=== PATIENT | female | born 2000 | race Caucasian/White ===

== ENCOUNTER 2019-11-29 22:18 | Inpatient (IN) | payer BC ==
[~2019-11-29] VITALS: Ht 167.6 cm; Wt 82.1 kg
[~2019-11-29 22:18] MED LIST: IV NORMAL SALINE 1000ML BAG 1,000 ML IV SCH
[2019-11-29] MEDS ORDERED: 0.9 % SODIUM CHLORIDE 10 ML DISP.SYRIN. IV PRN (22:30)
[2019-11-29] MEDS ORDERED: ACETAMINOPHEN 325 MG TABLET. PO PRN (22:30)
[2019-11-29] MEDS ORDERED: TERBUTALINE 1 MG/ML VIAL. SQ PRN (22:30)
[2019-11-29] MEDS ORDERED: OXYTOCIN 30 UNIT/500 ML PREMIX 500 ML IV PRN (22:30)
[2019-11-29] MEDS ORDERED: LIDOCAINE 1% PF 30 ML VIAL. INJ PRN (22:30)
[2019-11-29] MEDS ORDERED: BUTORPHANOL 2 MG/ML VIAL. IVP PRN (22:30)
[2019-11-29 22:51] LABS: BILIRUBIN,URINE NEGATIVE (NEG); CLARITY,URINE TURBID; COLOR,URINE YELLOW; NITRITE,URINE NEGATIVE (NEG); PH,URINE 7.5 (<5.0-8.0); PROTEIN,URINE 100 mg/dL (NEG-TRACE); UROBILINOGEN,URINE 0.2 mg/dL (0.2 mg/dL)
[2019-11-29 23:13] LABS: BACTERIA,URINE FEW /HPF (0-FEW); SQUAMOUS EPITHELIAL CELL,UR MOD /LPF
[2019-11-29] MEDS: IV RINGERS,LACTATED 1000ML 1,000 ML IV SCH (23:19)
[2019-11-29 23:30] LABS: BASO % 0 % (0-3); EOS % 0 % (0-3); HEMATOCRIT 31.9 % (36.0-47.0); HEMOGLOBIN 11.1 g/dL (12.0-15.5); LYMPH # 2.4 x10^3/uL (1.0-4.8); LYMPH % 14 % (24-48); MEAN CORPUSCULAR HEMOGLOBIN 32 pg (25-35); MEAN CORPUSCULAR HGB CONC 35 g/dL (31-37); MEAN CORPUSCULAR VOLUME 92 fL (79-100); MONO # 0.9 x10^3/uL (0.0-1.1); MONO % 5 % (0-9); NEUT # 14.1 x10^3/uL (1.8-7.7); NEUT % 80 % (31-73); PLATELET COUNT 281 x10^3/uL (140-400); RED BLOOD COUNT 3.47 x10^6/uL (3.50-5.40); WHITE BLOOD COUNT 17.6 x10^3/uL (4.0-11.0)
[2019-11-29 23:36] VITALS: BP 133/78
[2019-11-30] MEDS ORDERED: NALOXONE 0.4 MG/ML VIAL. IV PRN (00:15)
[2019-11-30] MEDS ORDERED: L&D EPIDURAL SYRINGE 50 ML EPID PRN (00:15)
[2019-11-30] MEDS ORDERED: ROPIVacaine 0.2% PF 10 ML VIAL. EPID PRN (00:15)
[2019-11-30] MEDS ORDERED: fentaNYL PF VIAL 100 MCG/2 ML VIAL EPID PRN (00:15)
[2019-11-30] MEDS ORDERED: BUPIVACAINE MPF 0.25% 30 ML VIAL. EPID PRN (00:15)
[2019-11-30] MEDS ORDERED: IV RINGERS,LACTATED 1000ML 1,000 ML IV SCH (00:30)
[2019-11-30] MEDS: IV RINGERS,LACTATED 1000ML 1,000 ML IV SCH (00:37)
[2019-11-30] MEDS ORDERED: ROPIVacaine 0.2% PF 10 ML VIAL. ONE ×2 (01:00→03:00)
[2019-11-30] MEDS ORDERED: OXYTOCIN PREMIX 30 UNIT/500 ML NS BAG. IV ONE (03:00)
--- NOTE | 2019-11-30 03:12 | PDOC1 ---
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 The pt was confirmed SROM. The pt was found to be 3 cm dilated and ctxing regularly. PMH: Denies PSH: Denies OBHx: G1 SH: no tob, no EtOH FH: noncontributory Medications: Meds: Current Medications Medications (Trade) Dose Ordered Sig/Guevara Route PRN Reason Start Time Stop Time Status Last Admin Dose Admin Ringer's Solution 1,000 ml @ 125 mls/hr Q8H IV 11/29/19 22:25 11/30/19 00:37 Fentanyl Citrate 50 ml @ 14 mls/hr CONT PRN EPID PAIN 11/30/19 00:15 11/30/19 00:35 Allergies: Coded Allergies: Sulfa (Sulfonamide Antibiotics) (Verified Allergy, Intermediate, 11/29/19) Physical Exam: Vital Signs: Vital Signs Date Time Temp Pulse Resp B/P (MAP) Pulse Ox O2 Delivery O2 Flow Rate FiO2 11/30/19 00:35 18 Room Air 11/29/19 23:36 98.9 129 133/78 (96) 98.9 PE: GENERAL: No apparent distress. Alert and oriented. HEENT: Head normocephalic, atraumatic. NECK: Supple LUNGS: Clear to auscultation. HEART: RRR, S1, S2 present, pulses intact ABDOMEN: Soft, positive bowel sounds. EXTREMITIES: No cyanosis or edema. NEUROLOGIC: Normal speech, normal tone PSYCHIATRIC: Normal affect, normal mood. SKIN: No ulceration. FHT: 120s +acels/no decels/mLTV [place]: 1-2 min SVE: C/C/+2 Labs: Laboratory Tests Test 11/29/19 22:45 11/29/19 23:10 Urine Collection Type Unknown Urine Color Yellow Urine Clarity Turbid Urine pH 7.5 (<5.0-8.0) Urine Specific [place] <=1.005 (1.000-1.030) Urine Protein 100 mg/dL (NEG-TRACE) Urine Glucose (UA) Negative mg/dL (NEG) Urine Ketones (Stick) Negative mg/dL (NEG) Urine Blood Small (NEG) Urine Nitrite Negative (NEG) Urine Bilirubin Negative (NEG) Urine Urobilinogen Dipstick 0.2 mg/dL (0.2 mg/dL) Urine Leukocyte Esterase Small (NEG) Urine RBC 1-2 /HPF (0-2) Urine WBC 1-4 /HPF (0-4) Urine Squamous Epithelial Cells Mod /LPF Urine Bacteria Few /HPF (0-FEW) SARS-CoV-2 Antigen (Rapid) Negative (NEGATIVE) White Blood Count 17.6 x10^3/uL (4.0-11.0) H Red Blood Count 3.47 x10^6/uL (3.50-5.40) L Hemoglobin 11.1 g/dL (12.0-15.5) L Hematocrit 31.9 % (36.0-47.0) L Mean Corpuscular Volume 92 fL (79-100) Mean Corpuscular Hemoglobin 32 pg (25-35) Mean Corpuscular Hemoglobin Concent 35 g/dL (31-37) Red Cell Distribution Width 13.0 % (11.5-14.5) Platelet Count 281 x10^3/uL (140-400) Neutrophils (%) (Auto) 80 % (31-73) H Lymphocytes (%) (Auto) 14 % (24-48) L Monocytes (%) (Auto) 5 % (0-9) Eosinophils (%) (Auto) 0 % (0-3) Basophils (%) (Auto) 0 % (0-3) Neutrophils # (Auto) 14.1 x10^3/uL (1.8-7.7) H Lymphocytes # (Auto) 2.4 x10^3/uL (1.0-4.8) Monocytes # (Auto) 0.9 x10^3/uL (0.0-1.1) Eosinophils # (Auto) 0.0 x10^3/uL (0.0-0.7) Basophils # (Auto) 0.0 x10^3/uL (0.0-0.2) Platelet Estimate Pending Treponema pallidum Antibody Nonreactive (Nonreactive) Hepatitis B Surface Antigen Nonreactive (Nonreactive) Hepatitis C IgG Antibody Pending Laboratory Tests 11/29/19 23:10 Laboratory Tests 11/29/19 23:10 Assessment & Plan: A/P 19y @ 38.0 by 19wk u/s 1.) Late presentation to care 2.) Anemia - on Fe BID 3.) Bactrim allergy 4.) Tob use - discussed cessation 5.) Fetus cat I, vtx 6.) Boy - Jose 7.) TDAP given 10/02/19 8.) Desire Gardasil PP 9.) GBS neg EDILMA GOMEZ MD Nov 30, 2019 03:12
[2019-11-30] MEDS ORDERED: OXYTOCIN 30 UNIT/500 ML PREMIX 500 ML IV PRN (03:15)
[2019-11-30] MEDS ORDERED: HYDROCORTISONE 1% TOPICAL OINTMENT 30GM TUBE. TP PRN (03:15)
[2019-11-30] MEDS ORDERED: MMR per PROTOCOL. MC PRN (03:15)
[2019-11-30] MEDS ORDERED: TDaP (Adacel) per PROTOCOL. MC PRN (03:15)
[2019-11-30] MEDS ORDERED: PHENYLEPH/MINERAL OIL/PETROLAT RECTAL OINTMENT TUBE. RC PRN (03:15)
[2019-11-30] MEDS ORDERED: 0.9 % SODIUM CHLORIDE 10 ML DISP.SYRIN. IV PRN (03:15)
[2019-11-30] MEDS ORDERED: ZOLPIDEM 5 MG TABLET. PO PRN (03:15)
[2019-11-30] MEDS ORDERED: DOCUSATE SODIUM 100 MG CAPSULE. PO PRN (03:15)
[2019-11-30] MEDS ORDERED: oxyCODONE/APAP 5/325 1 TAB TABLET PO PRN (03:15)
[2019-11-30] MEDS ORDERED: MAGNESIUM HYDROXIDE 2,400 MG/30 ML ORAL.SUSP. PO PRN (03:15)
[2019-11-30] MEDS ORDERED: BENZOCAINE 20% TOPICAL AEROSOL SPRAY 57GM CAN. TP PRN (03:15)
[2019-11-30] MEDS ORDERED: diphenhydrAMINE HCL 25 MG CAPSULE PO PRN (03:15)
[2019-11-30] MEDS ORDERED: ACETAMINOPHEN 325 MG TABLET. PO PRN (03:15)
[2019-11-30] MEDS ORDERED: MAG HYDROX/ALUMINUM HYD/SIMETH 30 ML ORAL.SUSP PO PRN (03:15)
[2019-11-30] MEDS ORDERED: SIMETHICONE 80 MG TAB.CHEW PO PRN (03:15)
[2019-11-30] MEDS ORDERED: IBUPROFEN 400 MG TABLET. PO PRN (03:15)
--- NOTE | 2019-11-30 03:18 | PDOC ---
VAGINAL DELIVERY DATE DATE: 11/30/19 TIME: 03:17 TIME Patient delivered a viable male infant over intact perineum at 0257. Wt 7lb 10oz. Apgars 9/9. Placenta delivered spontaneously, intact with 3VC. No lacerations noted. Good hemostasis noted. 20 U of Pit given with IVF. EBL 200cc. WEIGHT Weight [ ] EDILMA GOMEZ MD Nov 30, 2019 03:18
[2019-11-30 05:46] LABS: % BANDS 3 % (0-9); % LYMPHS 23 % (24-48); % METAS 1 % (0-0); % MONOS 2 % (0-10); % SEGS 71 % (35-66)
[2019-11-30 08:00] VITALS: BP 117/71
[2019-11-30] MEDS: PRENATAL MULTIVITAMIN TABLET. PO SCH (08:52)
[2019-11-30 12:03] LABS: PLT ESTIMATE ADEQUATE (ADEQUATE)
[2019-11-30 15:35] VITALS: BP 106/64
[2019-11-30 18:35] VITALS: BP 126/87
[2019-11-30 23:36] VITALS: BP 109/70
[2019-12-01 05:28] VITALS: BP 100/45
--- NOTE | 2019-12-01 07:51 | PDOC ---
[employer] PROGRESS NOTE Date of Service: DATE: 12/01/19 TIME: 07:46 Subjective: Pt with good pain control. Colleen PO. Voiding. Minimal lochia. Objective: Vital Signs: Vital Signs Date Time Temp Pulse Resp B/P (MAP) Pulse Ox O2 Delivery O2 Flow Rate FiO2 11/30/19 08:00 99.2 99 17 117/71 (86) 96 Room Air 99.2 Vital Signs Date Time Temp Pulse Resp B/P (MAP) Pulse Ox O2 Delivery O2 Flow Rate FiO2 12/01/19 05:28 97.9 80 16 100/45 (63) 98 Room Air 97.9 Physical Exam: GENERAL: No apparent distress. Alert and oriented. HEENT: Head normocephalic, atraumatic. NECK: Supple LUNGS: Clear to auscultation. HEART: RRR, S1, S2 present, pulses intact ABDOMEN: Soft, positive bowel sounds. EXTREMITIES: No cyanosis or edema. NEUROLOGIC: Normal speech, normal tone PSYCHIATRIC: Normal affect, normal mood. SKIN: No ulceration. FFNT below umb no C/C/E Assessment & Plan: A/P 19y PPD #1 s/p 1.) PP - dong well 2.) Anemia - 11.1 -> pending 3.) Bactrim allergy 4.) Tob use - discussed cessation 5.) Boy - Jose 6.) TDAP given 10/02/19 EDILMA GOMEZ MD Dec 01, 2019 07:51
[2019-12-01] MEDS ORDERED: IBUP-1060 PO (07:53)
[2019-12-01] MEDS ORDERED: DOCU-109 PO (07:53)
[2019-12-01] MEDS ORDERED: FERROUS SULFATE 325 MG TABLET. PO SCH (08:00)
[2019-12-01] MEDS: PRENATAL MULTIVITAMIN TABLET. PO SCH (08:38)
[2019-12-01 09:45] VITALS: BP 115/78
[2019-12-01 10:25] LABS: HEMATOCRIT 31.2 % (36.0-47.0); HEMOGLOBIN 10.9 g/dL (12.0-15.5)
[2019-12-01 18:35] VITALS: BP 134/87
--- NOTE | 2019-12-01 18:40 | NUR ---
Discharge and follow up instructions reviewed and given to pt along with Rx for ibuprofen and colace. Pt and S/O verbalized instructions and denied any complaints at time of discharge. Pt ambulated out of hospital with staff, S/O and infant.
--- NOTE | 2019-12-01 20:52 | DS ---
DATE OF DISCHARGE: 12/01/2019 ADMISSION DIAGNOSES: 1. Intrauterine at 38 weeks and 0 days by 19-week ultrasound. 2. Spontaneous rupture of membranes. 3. Late presentation to care. 4. Anemia. 5. BACTRIM ALLERGY. 6. Tobacco use. 7. GBS negative. DISCHARGE DIAGNOSES: 1. Intrauterine at 38 weeks and 0 days by 19-week ultrasound. 2. Spontaneous rupture of membranes. 3. Late presentation to care. 4. Anemia. 5. BACTRIM ALLERGY. 6. Tobacco use. 7. GBS negative. PROCEDURE: Spontaneous vaginal delivery. BRIEF HOSPITAL COURSE: The patient is a 19-year-old 1, para 0, who presented to Labor and Delivery at 38 weeks and 0 days by 19-week ultrasound with leakage of fluid. The patient was confirmed ruptured. At that time, the patient was 3 cm dilated and kristin regularly. The patient ultimately progressed to complete, delivered by vaginal delivery; see delivery note for full details. By day #1, the patient was meeting all discharge criteria and desired discharge home. Of note, the patient's hemoglobin on admission was 11.1 and on day #1, was found to be 10.9. DISCHARGE INSTRUCTIONS: The patient was told not to lift anything greater than 20 pounds, have pelvic rest for 6 weeks. CALL IF: The patient was to call if she has fevers, chills, nausea, vomiting, abdominal pain or any additional questions or concerns. FOLLOWUP APPOINTMENT: The patient is to follow up in 6 weeks' time for a appointment. DISCHARGE MEDICATIONS: The patient was given a prescription for Motrin 800 mg 30 pills and Colace 100 mg 30 pills. EDILMA GOMEZ MD DR: JUDITH/kelly JOB#: [id number] / [id number]
== END 2019-12-01 18:40 | disposition home or self-care (01) | DRG 807 ==
LOC: 3 SO LND 22:18 → OBSVTOIN 22:18 → INTOOBSV 22:18 → 3 NORTH 11-30 08:00
PROVIDERS: ADMIT Obstetrics & Gynecology; ATTEND Obstetrics & Gynecology
PROC: 10E0XZZ Delivery of Products of Conception, External Approach (ICD-10-PCS; principal; 2019-11-30)
DX: O99.02 Anemia complicating childbirth (principal); Z37.0 Single live birth; O99.334 Smoking (tobacco) complicating childbirth; D64.9 Anemia, unspecified; Z3A.38 38 weeks gestation of pregnancy; Z88.1 Allergy status to other antibiotic agents; Z20.828 Contact with and (suspected) exposure to other viral communicable diseases
CPT/HCPCS: 36415; 81001; 85007; 85014; 85018; 85025; 86592; 86762; 86787; 86803; 86850; 86900; 86901; 87086; 87340; 87426; G0378; J2590; J2795; J3010; J7120; U0003-CS